=== PATIENT | male | born 2000 | race Hispanic/Latino ===

== ENCOUNTER 2022-11-01 13:33 | Emergency (ER) | payer OTHER, BC ==
[~2022-11-01] VITALS: Ht 170.2 cm; Wt 120.2 kg
[2022-11-01] MEDS ORDERED: LIDOCAINE HCL 1% LOCAL INJ 20 ML VIAL INJ ONE (14:30)
[2022-11-01] MEDS ORDERED: KEFLEX125 MG/5 M PO (15:08)
[2022-11-01 15:19] VITALS: BP 142/62; PULSE 87; RESP 16; TEMP 98.3; O2SAT 100
== END 2022-11-01 15:17 | disposition home or self-care (01) ==
LOC: ER 13:40
DX: S61.213A Laceration without foreign body of left middle finger without damage to nail, initial encounter (principal); W26.8XXA Contact with other sharp object(s), not elsewhere classified, initial encounter; Y92.89 Other specified places as the place of occurrence of the external cause
CPT/HCPCS: 12001; 99282; J2001